=== PATIENT | female | born 1985 | race Caucasian/White ===

== ENCOUNTER 2016-05-25 10:08 | Inpatient (IN) | payer MEDICAID, OTHER ==
[~2016-05-25 10:08] MED LIST: POTA-243 PO; PRENCAP6 PO
[2016-05-25] MEDS ORDERED: NIFEdipine 10 MG CAP ONE ×4 (10:48→22:17)
[2016-05-25] MEDS ORDERED: MAGNESIUM SULFATE 4 GM PREMIX 100 ML ONE ×2 (10:56→11:12)
[2016-05-25] MEDS ORDERED: MAGNESIUM SULFATE 40 GM PREMIX 1,000 ML ONE (10:57)
[2016-05-25] MEDS ORDERED: MAGNESIUM SULFATE 1 GM/2 ML VIAL IM ONE (11:00)
[2016-05-25] MEDS ORDERED: LIDOCAINE HCL 1% 50 ML VIAL ONE (11:01)
[2016-05-25] MEDS ORDERED: SODIUM CHLORID 0.9% 500 ML INJ 500 ML IV PRN (11:15)
[2016-05-25] MEDS ORDERED: LACTATED RINGER'S 1000 ML INJ 1,000 ML IV PRN (11:15)
[2016-05-25] MEDS ORDERED: OXYTOCIN 30 UNITS-500ML PREMIX 500 ML IV ONE (11:15)
[2016-05-25] MEDS ORDERED: CITRIC ACID-SODIUM CITRATE LIQ 30 ML UDC PO SCH (11:15)
[2016-05-25] MEDS ORDERED: MINERAL OIL 10 ML VIAL TOPICAL PRN (11:15)
[2016-05-25] MEDS ORDERED: LIDOCAINE HCL 1% 50 ML VIAL INFIL PRN (11:15)
[2016-05-25] MEDS ORDERED: LIDOCAINE HCL 1% 50 ML VIAL I-DERMAL PRN (11:15)
[2016-05-25] MEDS ORDERED: ONDANSETRON HCL 4 MG/2 ML VIAL IV PRN (11:15)
[2016-05-25] MEDS ORDERED: SODIUM CHLOR 0.9% 1000 ML INJ 1,000 ML IV PRN (11:35)
[2016-05-25 11:50] LABS: AUTOMATED NEUTROPHIL # 6.6 TH/MM3 (1.8-7.7); BASOPHIL # 0.1 TH/MM3 (0-0.2); BASOPHIL % 0.7 % (0.0-2.0); EOSINOPHIL % 0.4 % (0.0-4.0); HEMATOCRIT 33.1 % (35.0-46.0); LYMPH % 17.1 % (9.0-44.0); LYMPHOCYTE # 1.5 TH/MM3 (1.0-4.8); MEAN CELL VOLUME 76.4 FL (80.0-100.0); MEAN CORPUSCULAR HEMOGLOBIN 24.9 PG (27.0-34.0); MEAN CORPUSCULAR HGB CONC 32.5 % (32.0-36.0); MONO % 5.5 % (0.0-8.0); NEUT % 76.3 % (16.0-70.0); PLATELET COUNT 259 TH/MM3 (150-450); RED BLOOD COUNT 4.33 MIL/MM3 (4.00-5.30); RED CELL DISTRIBUTION WIDTH 16.1 % (11.6-17.2); WHITE BLOOD COUNT 8.6 TH/MM3 (4.0-11.0)
[2016-05-25 11:57] LABS: HEMO FLAGS AUTO DIFF
[2016-05-25] MEDS ORDERED: PENICILLIN G POTASSIUM INJ 5,000,000 UNITS in SODIUM CHLORIDE 0.9% INJ 100 ML IV ONE (12:00)
[2016-05-25 12:15] LABS: ALT (GPT) 23 U/L (10-53); ANION GAP 9 MEQ/L (5-15); AST (GOT) 28 U/L (15-37); BICARBONATE 21.8 MEQ/L (21.0-32.0); BLOOD UREA NITROGEN 8 MG/DL (7-18); CHLORIDE 108 MEQ/L (98-107); GLOMERULAR FILTRATION RATE 108 ML/MIN (>89); POTASSIUM 3.3 MEQ/L (3.5-5.1); SODIUM (NA) 139 MEQ/L (136-145); URIC ACID 4.1 MG/DL (2.6-6.0)
[2016-05-25 12:18] LABS: ALKALINE PHOSPHATASE 267 U/L (45-117); TOTAL BILIRUBIN ADULT 0.3 MG/DL (0.2-1.0)
[2016-05-25 12:32] LABS: BLOOD, URINE NEG (NEG); COMMENT (UR) CULT NOT INDICATED; CULTURE IF INDICATED CULT NOT INDICATED; GLUCOSE,URINE NEG (NEG); HYALINE CAST, URINE 1 /lpf (RARE); KETONE, URINE NEG (NEG); MUCUS URINE FEW /lpf (OCC); NITRITE,URINE NEG (NEG); SQUAMOUS EPITHELIAL CELL URINE <1 /hpf (0-5); URINE COLOR YELLOW (YELLW/STRAW)
[2016-05-25 12:37] LABS: SCAN/DIFF AUTO DIFF CONFIRMED
[2016-05-25] MEDS ORDERED: fentaNYL 2MCG-BUPIV 0.125% INJ 100 ML ONE ×2 (12:46→18:59)
[2016-05-25] MEDS ORDERED: ePHEDrine/NS 50 MG/5 ML SYR ONE (12:58)
--- NOTE | 2016-05-25 13:11 | PD ---
HPI Chief Complaint Contractions Date Seen: May 25, 2016 Travel History International Travel<30 Days: No Contact w/Intl Traveler<30Days: No History of Present Illness HPI Mrs. Cohen is a 30-year-old at 35/5 presenting to the OB ED with contractions. She states that since she woke up this morning she's had intermittent 10 out of 10 contractions. She endorses good movement, but denies any loss of fluid, bleeding, or vaginal discharge. During this she admits to IV drug use with her last use approximately 2 months ago with IV Dilaudid 8 mg 2. Per chart review patient was also positive for cocaine at previous visits. She states that she has been to rehabilitation and is currently on Methadone 70mg daily with Gabapentin 400mg and Vistaril 50mg. She also endorses a 1 pack per day smoking history, but has quit approximately 5 months ago with intermittent single cigarettes since then. she was seen by Dr. Gilbert, however has not been seen by provider in months. PMHx significant for hepatitis C related to her IVD. 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 Home Meds Active Scripts Potassium Chloride (K-Dur)10 Meq Tabcr30 Meq PO BID #30 TABCR Ref 0 Prov:Mona Hightower MD 03/07/16 Reported Medications Mv & Min W/Fe Fumarat ( 1) Cap1 Cap PO 03/01/16 Narrative Medication vitamin daily Gabapentin 400 mg every 8 hours Ativan 1 mg every 6 hours when necessary Clonidine 0.1 mg when necessary Vistaril 50 mg daily Methadone 70 mg daily Review of Systems General / Constitutional: No: Fever Eyes: No: Blurred Vision HENT: No: Headaches Cardiovascular: No: Chest Pain or Discomfort, Palpitations Respiratory: No: Cough, Short of Breath Gastrointestinal: Diarrhea, No: Nausea, Vomiting Genitourinary: No: Dysuria, Discharge, Vaginal Bleeding Musculoskeletal: Edema Skin: No Rash Neurologic: No: Weakness Psychiatric: Substance Abuse Endocrine: No: Polydipsia Hematologic/Lymphatic: No Lymph Node Enlargement Physical Exam Narrative GENERAL: Well-nourished, well-developed patient. SKIN: Warm and dry. HEAD: Normocephalic and atraumatic. EYES: No scleral icterus. No injection or drainage. ENT: No nasal drainage noted. Mucous membranes pink. Airway patent. NECK: Supple, trachea midline. No JVD. CARDIOVASCULAR: Regular rate and rhythm without murmurs, gallops, or rubs. RESPIRATORY: Breath sounds equal bilaterally. No accessory muscle use. ABDOMEN/GI: Abdomen soft, non-tender, bowel sounds present, no rebound, no guarding Gravid to 35 weeks size GENITOURINARY: External Genitalia: intact and normal in appearance Cervix: Midposition Dilatation: And centimeters Effacement: 80% Station: 0 Presentation: Cephalic Membranes: Bulging FHT's: Category: 1 Baseline: 130 Reactive: Positive Variability: Moderate Decels: None EXTREMITIES: No cyanosis. Mild pitting edema on BL. BACK: Nontender without obvious deformity. No CVA tenderness. NEUROLOGICAL: Awake and alert. Motor and sensory grossly within normal limits. Five out of 5 muscle strength in all muscle groups. Normal speech. Data Data Vital Signs Reviewed: Yes Orders Ob (2e) Additional Admit Info (05/25/16 10:47) Nifedipine (Procardia) (05/25/16 10:48) Magnesium Sulfate 4 Gm Premix (Magnesium (05/25/16 10:56) Equip, Iv Pump Triple Use Of (05/25/16 10:56) Magnesium Sulfate 40 Gm Premix (Magnesiu (05/25/16 10:57) Magnesium Sulfate Inj (Magnesium Sulfate (05/25/16 11:00) Lidocaine 1% Inj (50 Ml) (Xylocaine 1% I (05/25/16 11:01) Magnesium Sulfate 4 Gm Premix (Magnesium (05/25/16 11:12) Admit To Inpatient (05/25/16 ) Code Status (05/25/16 11:15) Vital Signs (Adult) .Per protocol (05/25/16 11:15) ^ Heart (05/25/16 11:15) ^ Amnioinfusion (05/25/16 11:15) Urinary Catheter Management .ONCE (05/25/16 11:15) Diet Liquid (05/25/16 Lunch) Lactated Ringer's 1000 Ml Inj (Lr 1000 M (05/25/16 11:15) Lactated Ringer's 1000 Ml Inj (Lr 1000 M (05/25/16 11:15) Sodium Chlorid 0.9% 500 Ml Inj (Ns 500 M (05/25/16 11:15) Sodium Chlor 0.9% 1000 Ml Inj (Ns 1000 M (05/25/16 11:35) Lidocaine 1% Inj (50 Ml) (Xylocaine 1% I (05/25/16 11:15) Citric Acid-Sodium Citrate Liq (Bicitra (05/25/16 11:15) Ondansetron Inj (Zofran Inj) (05/25/16 11:15) Fentanyl Inj (Fentanyl Inj) (05/25/16 11:15) Fentanyl Inj (Fentanyl Inj) (05/25/16 11:15) Penicillin G Potassium Inj (Pfizerpen-G (05/25/16 12:00) Penicillin G Potassium Inj (Pfizerpen-G (05/25/16 16:00) Complete Blood Count With Diff (05/25/16 11:15) Hold Clot (05/25/16 11:15) Abo/Rh Blood Type (05/25/16 11:15) Urinalysis - C+S If Indicated (05/25/16 11:15) Type And Screen (05/25/16 11:15) Resp Oxygen Non Rebreathe Mask (05/25/16 ) ^ Epidural / Intrathecal Infus (05/25/16 11:15) Oxytocin 30 Units-500ml Premix (Pitocin (05/25/16 11:15) Lidocaine 1% Inj (50 Ml) (Xylocaine 1% I (05/25/16 11:15) Light Mineral Oil (Muri-Lube Oil) (05/25/16 11:15) Inpatient Certification (05/25/16 ) Specimen To Be Collected PRN (05/25/16 11:15) Uric Acid (05/25/16 11:42) Comprehensive Metabolic Panel (05/25/16 11:42) [facility] Medical Record Reviewed: Yes Plan Mrs. Cohen is a 30-year-old at 35/5 presenting to the OB ED with contractions 1.IUP at 35 weeks Continue routine antepartum care Category 1 tracing, reassuring 2. Labor -Cervical Check: 5cm, 90%, 0 station -Patient hill every 3-4 minutes -Plant to admit for active labor, orders placed -CBC, CMP, UA, and UDS pending -GBS unknown, will treat with Pen G 3. Hypertensive Emergency in -BP: 163/101 with repeat of 170/99 -Per Protocol Procardia 10mg given PO -IV Magnesium loading dose given with 2g/hr -Continue to monitor 4. Hepatitis C s/p IVD -UDS pending -CMP pending SDW: Dr. Fadi Landry,Brown Pagan MD R1 May 25, 2016 13:11
--- NOTE | 2016-05-25 14:12 | HHI.HP ---
History & Physical H&P HPI Chief Complaint Contractions Date Seen: May 25, 2016 Travel History International Travel<30 Days: No Contact w/Intl Traveler<30Days: No History of Present Illness HPI Mrs. Cohen is a 30-year-old at 35/5 presenting to the OB ED with contractions. She states that since she woke up this morning she's had intermittent 10 out of 10 contractions. She endorses good movement, but denies any loss of fluid, bleeding, or vaginal discharge. During this she admits to IV drug use with her last use approximately 2 months ago with IV Dilaudid 8 mg 2. Per chart review patient was also positive for cocaine at previous visits. She states that she has been to rehabilitation and is currently on Methadone 70mg daily with Gabapentin 400mg and Vistaril 50mg. She also endorses a 1 pack per day smoking history, but has quit approximately 5 months ago with intermittent single cigarettes since then. she was seen by Dr. Gilbert, however has not been seen by provider in months. PMHx significant for hepatitis C related to her IVD. 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 Home Meds Active Scripts Potassium Chloride (K-Dur)10 Meq Tabcr30 Meq PO BID #30 TABCR Ref 0 Prov:Mona Hightower MD 03/07/16 Reported Medications Mv & Min W/Fe Fumarat ( 1) Cap1 Cap PO 03/01/16 Narrative Medication vitamin daily Gabapentin 400 mg every 8 hours Ativan 1 mg every 6 hours when necessary Clonidine 0.1 mg when necessary Vistaril 50 mg daily Methadone 70 mg daily ROS Review of Systems General / Constitutional: No: Fever Eyes: No: Blurred Vision HENT: No: Headaches Cardiovascular: No: Chest Pain or Discomfort, Palpitations Respiratory: No: Cough, Short of Breath Gastrointestinal: Diarrhea, No: Nausea, Vomiting Genitourinary: No: Dysuria, Discharge, Vaginal Bleeding Musculoskeletal: Edema Skin: No Rash Neurologic: No: Weakness Psychiatric: Substance Abuse Endocrine: No: Polydipsia Hematologic/Lymphatic: No Lymph Node Enlargement Physical Exam Physical Exam Narrative GENERAL: Well-nourished, well-developed patient. SKIN: Warm and dry. HEAD: Normocephalic and atraumatic. EYES: No scleral icterus. No injection or drainage. ENT: No nasal drainage noted. Mucous membranes pink. Airway patent. NECK: Supple, trachea midline. No JVD. CARDIOVASCULAR: Regular rate and rhythm without murmurs, gallops, or rubs. RESPIRATORY: Breath sounds equal bilaterally. No accessory muscle use. ABDOMEN/GI: Abdomen soft, non-tender, bowel sounds present, no rebound, no guarding Gravid to 35 weeks size GENITOURINARY: External Genitalia: intact and normal in appearance Cervix: Midposition Dilatation: And centimeters Effacement: 80% Station: 0 Presentation: Cephalic Membranes: Bulging FHT's: Category: 1 Baseline: 130 Reactive: Positive Variability: Moderate Decels: None EXTREMITIES: No cyanosis. Mild pitting edema on BL. BACK: Nontender without obvious deformity. No CVA tenderness. NEUROLOGICAL: Awake and alert. Motor and sensory grossly within normal limits. Five out of 5 muscle strength in all muscle groups. Normal speech. Data Data Data Vital Signs Reviewed: Yes Orders Ob (2e) Additional Admit Info (05/25/16 10:47) Nifedipine (Procardia) (05/25/16 10:48) Magnesium Sulfate 4 Gm Premix (Magnesium (05/25/16 10:56) Equip, Iv Pump Triple Use Of (05/25/16 10:56) Magnesium Sulfate 40 Gm Premix (Magnesiu (05/25/16 10:57) Magnesium Sulfate Inj (Magnesium Sulfate (05/25/16 11:00) Lidocaine 1% Inj (50 Ml) (Xylocaine 1% I (05/25/16 11:01) Magnesium Sulfate 4 Gm Premix (Magnesium (05/25/16 11:12) Admit To Inpatient (05/25/16 ) Code Status (05/25/16 11:15) Vital Signs (Adult) .Per protocol (05/25/16 11:15) ^ Heart (05/25/16 11:15) ^ Amnioinfusion (05/25/16 11:15) Urinary Catheter Management .ONCE (05/25/16 11:15) Diet Liquid (05/25/16 Lunch) Lactated Ringer's 1000 Ml Inj (Lr 1000 M (05/25/16 11:15) Lactated Ringer's 1000 Ml Inj (Lr 1000 M (05/25/16 11:15) Sodium Chlorid 0.9% 500 Ml Inj (Ns 500 M (05/25/16 11:15) Sodium Chlor 0.9% 1000 Ml Inj (Ns 1000 M (05/25/16 11:35) Lidocaine 1% Inj (50 Ml) (Xylocaine 1% I (05/25/16 11:15) Citric Acid-Sodium Citrate Liq (Bicitra (05/25/16 11:15) Ondansetron Inj (Zofran Inj) (05/25/16 11:15) Fentanyl Inj (Fentanyl Inj) (05/25/16 11:15) Fentanyl Inj (Fentanyl Inj) (05/25/16 11:15) Penicillin G Potassium Inj (Pfizerpen-G (05/25/16 12:00) Penicillin G Potassium Inj (Pfizerpen-G (05/25/16 16:00) Complete Blood Count With Diff (05/25/16 11:15) Hold Clot (05/25/16 11:15) Abo/Rh Blood Type (05/25/16 11:15) Urinalysis - C+S If Indicated (05/25/16 11:15) Type And Screen (05/25/16 11:15) Resp Oxygen Non Rebreathe Mask (05/25/16 ) ^ Epidural / Intrathecal Infus (05/25/16 11:15) Oxytocin 30 Units-500ml Premix (Pitocin (05/25/16 11:15) Lidocaine 1% Inj (50 Ml) (Xylocaine 1% I (05/25/16 11:15) Light Mineral Oil (Muri-Lube Oil) (05/25/16 11:15) Inpatient Certification (05/25/16 ) Specimen To Be Collected PRN (05/25/16 11:15) Uric Acid (05/25/16 11:42) Comprehensive Metabolic Panel (05/25/16 11:42) MDM MDM Medical Record Reviewed: Yes Plan Mrs. Cohen is a 30-year-old at 35/5 presenting to the OB ED with contractions 1.IUP at 35 weeks Continue routine antepartum care Category 1 tracing, reassuring 2. Labor -Cervical Check: 5cm, 90%, 0 station -Patient hill every 3-4 minutes -Plant to admit for active labor, orders placed -CBC, CMP, UA, and UDS pending -GBS unknown, will treat with Pen G 3. Hypertensive Emergency in -BP: 163/101 with repeat of 170/99 -Per Protocol Procardia 10mg given PO -IV Magnesium loading dose given with 2g/hr -Continue to monitor 4. Hepatitis C s/p IVD -UDS pending -CMP pending SDW: Brown Gonzales MD R1 May 25, 2016 14:11
[2016-05-25] MEDS ORDERED: POTASSIUM CHLORIDE 10 MEQ CONTROLLED RELEASE TAB PO ONE (15:00)
[2016-05-25] MEDS ORDERED: MEASLES, MUMPS, RUBELLA VACCINE 0.5 ML VIAL SQ ONE (16:00)
[2016-05-25] MEDS ORDERED: DIPHTH/TETANUS/ACEL PERTUSSIS (BOOSTER) 0.5 ML VIAL/PFS IM ONE (16:00)
[2016-05-25] MEDS: LACTATED RINGER'S 1000 ML INJ 1,000 ML IV SCH (19:15)
[2016-05-25] MEDS: PENICILLIN G POTASSIUM INJ 2,500,000 UNITS in SODIUM CHLORIDE 0.9% INJ 100 ML IV SCH (20:00)
--- NOTE | 2016-05-25 20:11 | PD.OB.DELI ---
Delivery Date: May 25, 2016 Anesthesia: Epidural Episiotomy: None Vaginal Delivery: Normal Presentation: Occiput anterior Nuchal Cord: None Infant: Female One Minute : 5 Ten Minute : 8 Weight: 2660 Care: Suctioned, Blow-by O2 delivered, Transferred to nursery, Transferred to NICU, Other (be transferred to the NICU due to inability to hold oxygen saturation up) Placenta: Spontaneous delivery, Intact, 3 vessel cord Laceration: Vaginal laceration, 2 deg Repair: Chromic running Additional Information This 30-year-old G3 to P now P1 at 35 weeks who presented in labor also with elevated blood pressure started on magnesium sulfate for preeclampsia she progressed in labor She delivered over an intact perineum a viable female weight 20/6/60 grams with Apgars of 5 at 1 minute and 8 at 5 minutes Placenta delivered spontaneously intact Sustained a second-degree vaginal laceration which was repaired with 2-0 chromic suture under local lidocaine infiltration Uterus firm no active bleeding Is submitted blood loss less than 300 cc Magnesium will be continued for the next 24 hours catheter replaced Diana Ashley MD May 25, 2016 20:11
[2016-05-25] MEDS ORDERED: BENZOCAINE 20% TOPICAL SPRAY 60 ML CAN TOPICAL PRN (20:15)
[2016-05-25] MEDS ORDERED: WITCH HAZEL 50%/GLYCERIN 12.5% 40 PAD JAR TOPICAL PRN (20:15)
[2016-05-25] MEDS ORDERED: ALUMINUM/MAGNESIUM/SIMETH 30 ML CUP PO PRN (20:15)
[2016-05-25] MEDS ORDERED: DOCUSATE SODIUM 50 MG/SENNA 8.6 MG TAB PO PRN (20:15)
[2016-05-25] MEDS ORDERED: ACETAMINOPHEN 325 MG TAB PO PRN (20:15)
[2016-05-25] MEDS ORDERED: ONDANSETRON ODT 4 MG TAB PO PRN (20:15)
[2016-05-25] MEDS ORDERED: SODIUM CHLORIDE 0.9% FLUSH 5 ML FLUSH IV PRN (20:15)
[2016-05-25] MEDS: SODIUM CHLORIDE 0.9% FLUSH 5 ML FLUSH IV SCH (21:00)
[2016-05-25] MEDS ORDERED: ZOLPIDEM TARTRATE 5 MG TAB PO PRN (21:00)
[2016-05-25] MEDS ORDERED: OXYTOCIN 30 UNITS-500ML PREMIX 500 ML ONE (21:03)
[2016-05-25] MEDS ORDERED: MISOPROSTOL 200 MCG TAB ONE (21:03)
--- NOTE | 2016-05-25 21:29 | HHI.PR ---
Subjective Remarks Called by the nurses patient passed a large clot Upon evaluation the uterus is firm Clots removed from the vagina Blood pressures mildly elevated due to pain She has been continued on the magnesium sulfate Elevated blood pressures treated with Procardia Cytotec 400 g placed in the rectum No active bleeding will monitor closely Repeat CBC Objective Result Diagram: 05/25/16 1114 05/25/16 1109 Diana Ashley MD May 25, 2016 21:29
[2016-05-25] MEDS ORDERED: MISOPROSTOL 200 MCG TAB PO ONE (21:30)
[2016-05-25] MEDS ORDERED: MIDAZOLAM HCL 5 MG/5 ML VIAL ONE (22:24)
[2016-05-25 23:08] LABS: AMPHETAMINE, URINE NEG (NEG); BARBITURATES, URINE NEG (NEG)
[2016-05-25 23:13] LABS: COCAINE, URINE POS (NEG)
--- NOTE | 2016-05-25 23:23 | PD.OP ---
Operative Report Date of Surgery: May 25, 2016 Preoperative Diagnosis: Status post vaginal delivery hemorrhage Postoperative Diagnosis: Procedure: Examination under anesthesia suction D&C Anesthesia: Epidural Surgeon: Diana Aponte Field Attendant(s): OR staff Resident Surgeon: None Operation and Findings: The patient was taken to the operating room where she was placed in the supine position the epidural anesthesia had been dosed and the patient was not She was placed in the lithotomy position and a Pak catheter was already present as the patient is on magnesium sulfate was continued urinary output monitoring The perineum was prepped and draped in the usual sterile fashion examination revealed the uterus to be just above the suprapubic area firm Large clot inside the vagina removed The second degree laceration was intact The circumference of the cervix was evaluated there were no cervical lacerations The lower uterine segment had not contracted well Patient had what appeared to be ectropion and a small fibroid palpated at the lower uterine segment A suction D&C was done with a 12 mm rigid firm cannula Small amount of tissue and clots removed from the cavity Postprocedure no active bleeding Uterus was firm Blood pressure 140/80 Urine output clear and adequate Accelerations transferred to labor and delivery for postop and continued recovery Diana Ashley MD May 25, 2016 23:23
[2016-05-25 23:50] LABS: HEMATOCRIT 31.2 % (35.0-46.0); MEAN CORPUSCULAR HEMOGLOBIN 25.3 PG (27.0-34.0); MEAN CORPUSCULAR HGB CONC 33.2 % (32.0-36.0); PLATELET COUNT 311 TH/MM3 (150-450); RED CELL DISTRIBUTION WIDTH 16.3 % (11.6-17.2); REVIEW FLAG FINAL; WHITE BLOOD COUNT 19.7 TH/MM3 (4.0-11.0)
[2016-05-26] VITALS (9 sets, daily range): BP systolic 153–172; BP diastolic 68–103; PULSE 79–87; RESP 16–18; TEMP 97.6–98.2
[2016-05-26] MEDS: LACTATED RINGER'S 1000 ML INJ 1,000 ML IV SCH ×3 (03:15→13:49)
[2016-05-26] MEDS: PENICILLIN G POTASSIUM INJ 2,500,000 UNITS in SODIUM CHLORIDE 0.9% INJ 100 ML IV SCH ×5 (04:00→12:43)
[2016-05-26] MEDS ORDERED: MAGNESIUM SULFATE 40 GM PREMIX 1,000 ML ONE (07:53)
[2016-05-26] MEDS: SODIUM CHLORIDE 0.9% FLUSH 5 ML FLUSH IV SCH (09:00)
[2016-05-26] MEDS: METHADONE HCL 10 MG/10 ML ORAL SOLUTION PO SCH (09:35)
--- NOTE | 2016-05-26 09:35 | HHI.OB ---
Subjective Post Day: 1 Remarks Patient is a 30-year-old , who is day #1, after having a spontaneous vaginal delivery at 35/5 weeks gestation. She was hill on presentation and had elevated blood pressures to 163/101. She was started on magnesium for preeclampsia and she progressed into active labor. Her urine drug screen was positive for cocaine, and she is on methadone 70 mg daily. She delivered via a normal spontaneous vaginal delivery, and sustained a second- degree vaginal laceration. EBL of 300 cc, however she passed a large clot at approximately 2100 hrs. on 05/25/2016, and was given Cytotec 400 g rectally. Her uterus was firm at that time. Today, she says that she has diffuse achy pain throughout her body. She is requesting her methadone which she usually gets at this time every morning. We have called the [facility] and confirmed her dose of 70 mg liquid methadone daily. She denies any headaches, changes in vision, or difficulty breathing. She will be on magnesium until 1929. Her blood pressures have normalized. A repeat CBC was put in for this morning. Her baseline is at 10.4 g/dL Objective Vitals/I&O Vital Signs Date Time Temp Pulse Resp B/P Pulse Ox O2 Delivery O2 Flow Rate FiO2 05/25/16 18:59 18 Objective Remarks GENERAL: Well-nourished, well-developed patient. CARDIOVASCULAR: Regular rate and rhythm without murmurs, gallops, or rubs. RESPIRATORY: Breath sounds equal bilaterally. No accessory muscle use. ABDOMEN/GI: Abdomen soft, non-tender. Fundus: Firm, non-tender at umbilicus. GENITOURINARY: Light to moderate bleeding. EXTREMITIES: No cyanosis or edema, non-tender, without signs of DVT. Medications and IVs Current Medications Medications (Trade) Dose Ordered Sig/Holly Route Start Time Stop Time Status Last Admin Lactated Ringer's 1,000 ml @ 125 mls/hr Q8H IV 05/25/16 11:15 05/26/16 03:15 Lactated Ringer's 1,000 ml @ 3,000 mls/hr Q20M PRN IV 05/25/16 11:15 Sodium Chloride 500 ml @ 1,000 mls/hr ONCE PRN IV 05/25/16 11:15 05/26/16 11:14 (NS 1000 ml Inj) 1,000 ml @ 100 mls/hr Q10H PRN IV 05/25/16 11:35 (Zofran Inj) 4 mg Q6H PRN IV 05/25/16 11:15 05/25/16 16:54 (fentaNYL INJ) 50 mcg Q1H PRN IV PUSH 05/25/16 11:15 Fentanyl Citrate 100 mcg 100 mcg Q1H PRN IV PUSH 05/25/16 11:15 05/25/16 21:11 (Pfizerpen-G Inj/ NS Inj) 100 ml @ 200 mls/hr Q4H IV 05/25/16 16:00 05/26/16 08:01 (Muri-Lube Oil) 10 ml UNSCH PRN TOPICAL 05/25/16 11:15 (NS Flush) 2 ml BID IV 05/25/16 21:00 (NS Flush) 2 ml UNSCH PRN IV 05/25/16 20:15 (Tylenol) 650 mg Q4H PRN PO 05/25/16 20:15 (Motrin) 600 mg Q6H PRN PO 05/25/16 20:15 (Americaine 20% Top Spr) 1 spray Q4H PRN TOPICAL 05/25/16 20:15 (Tucks Pads) 1 applic QID PRN TOPICAL 05/25/16 20:15 (Britt-Colace) 2 tab Q12H PRN PO 05/25/16 20:15 (Ambien) 5 mg HS PRN PO 05/25/16 21:00 (Mag-Al Plus Susp Liq) 15 ml Q8H PRN PO 05/25/16 20:15 (Zofran Odt) 4 mg Q6H PRN PO 05/25/16 20:15 (Methadone Liq) 70 mg DAILY PO 05/26/16 09:00 Assessment/Plan Problem List: (1) Elevated blood pressure (2) Cocaine abuse (3) (spontaneous vaginal delivery) (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 She is currently asymptomatic. Continue magnesium until 1930, today. Reflexes were 2+ throughout. Consider adding labetalol 300 mg twice a day if continuing to have elevated pressures greater than 160. Elevated blood pressures may be secondary to withdrawal. (2) Cocaine abuse Status: Acute Assessment & Plan: Positive UDS for cocaine. [facility] will be contacted. (3) Dilaudid use disorder, mild, abuse Status: Acute Assessment & Plan: Currently on methadone 70 mg daily. We'll continue this during her hospitalization. (4) (spontaneous vaginal delivery) Status: Acute Assessment & Plan: Patient passed a large clot shortly after delivery, was given Cytotec 400 g rectally. Repeat CBC for this morning is pending. (5) Leukocytosis Status: Acute Assessment & Plan: Increase in her WBC from 8.6 to 19.7. Patient remains afebrile. Urinalysis showed no signs of infection. Possible retained products after passing large blood clot. Placenta was intact after delivery. We'll continue to monitor for signs of endometritis/infection. Seen and discussed with Dr. Landry Discussed with Renato Jenkins MD R2 May 26, 2016 09:35 Consider adding labetalol 300 mg twice a day if continuing to have elevated pressures greater than 160. Elevated blood pressures may be secondary to withdrawal. (2) Cocaine abuse Status: Acute Assessment & Plan: Positive UDS for cocaine. [facility] will be contacted. (3) Dilaudid use disorder, mild, abuse Status: Acute Assessment & Plan: Currently on methadone 70 mg daily. We'll continue this during her hospitalization. (4) (spontaneous vaginal delivery) Status: Acute Assessment & Plan: Patient passed a large clot shortly after delivery, was given Cytotec 400 g rectally. Repeat CBC at bedtime for this morning is pending. (5) Leukocytosis Status: Acute Assessment & Plan: Increase in her WBC from 8.6 to 19.7. Patient remains afebrile. Urinalysis showed no signs of infection. Possible retained products after passing large blood clot. Placenta was intact after delivery. We'll continue to monitor for signs of endometritis/infection. Seen and discussed with Dr. Landry Discussed with Dr. Ashley Objective Vitals/I&O Vital Signs Date Time Temp Pulse Resp B/P Pulse Ox O2 Delivery O2 Flow Rate FiO2 05/25/16 18:59 18 Objective Remarks GENERAL: Well-nourished, well-developed patient. CARDIOVASCULAR: Regular rate and rhythm without murmurs, gallops, or rubs. RESPIRATORY: Breath sounds equal bilaterally. No accessory muscle use. ABDOMEN/GI: Abdomen soft, non-tender. Fundus: Firm, non-tender at umbilicus. GENITOURINARY: Light to moderate bleeding. EXTREMITIES: No cyanosis or edema, non-tender, without signs of DVT. Medications and IVs Current Medications Medications (Trade) Dose Ordered Sig/Holly Route Start Time Stop Time Status Last Admin Lactated Ringer's 1,000 ml @ 125 mls/hr Q8H IV 05/25/16 11:15 05/26/16 03:15 Lactated Ringer's 1,000 ml @ 3,000 mls/hr Q20M PRN IV 05/25/16 11:15 Sodium Chloride 500 ml @ 1,000 mls/hr ONCE PRN IV 05/25/16 11:15 05/26/16 11:14 (NS 1000 ml Inj) 1,000 ml @ 100 mls/hr Q10H PRN IV 05/25/16 11:35 (Zofran Inj) 4 mg Q6H PRN IV 05/25/16 11:15 05/25/16 16:54 (fentaNYL INJ) 50 mcg Q1H PRN IV PUSH 05/25/16 11:15 Fentanyl Citrate 100 mcg 100 mcg Q1H PRN IV PUSH 05/25/16 11:15 05/25/16 21:11 (Pfizerpen-G Inj/ NS Inj) 100 ml @ 200 mls/hr Q4H IV 05/25/16 16:00 05/26/16 08:01 (Muri-Lube Oil) 10 ml UNSCH PRN TOPICAL 05/25/16 11:15 (NS Flush) 2 ml BID IV 05/25/16 21:00 (NS Flush) 2 ml UNSCH PRN IV 05/25/16 20:15 (Tylenol) 650 mg Q4H PRN PO 05/25/16 20:15 (Motrin) 600 mg Q6H PRN PO 05/25/16 20:15 (Americaine 20% Top Spr) 1 spray Q4H PRN TOPICAL 05/25/16 20:15 (Tucks Pads) 1 applic QID PRN TOPICAL 05/25/16 20:15 (Britt-Colace) 2 tab Q12H PRN PO 05/25/16 20:15 (Ambien) 5 mg HS PRN PO 05/25/16 21:00 (Mag-Al Plus Susp Liq) 15 ml Q8H PRN PO 05/25/16 20:15 (Zofran Odt) 4 mg Q6H PRN PO 05/25/16 20:15 (Methadone Liq) 70 mg DAILY PO 05/26/16 09:00 Renato Hoorwitz MD R2 May 26, 2016 09:35
[2016-05-26 11:09] LABS: HEMATOCRIT 27.7 % (35.0-46.0); MEAN CELL VOLUME 75.2 FL (80.0-100.0); MEAN CORPUSCULAR HEMOGLOBIN 24.8 PG (27.0-34.0); PLATELET COUNT 306 TH/MM3 (150-450); RED BLOOD COUNT 3.68 MIL/MM3 (4.00-5.30); RED CELL DISTRIBUTION WIDTH 16.2 % (11.6-17.2); WHITE BLOOD COUNT 13.9 TH/MM3 (4.0-11.0)
[2016-05-26 11:14] LABS: REVIEW FLAG FINAL
[2016-05-26] MEDS: IBUPROFEN 600 MG TAB PO PRN (12:34)
[2016-05-27 01:30] VITALS: BP 151/88; PULSE 59; RESP 18; TEMP 98.2
[2016-05-27] MEDS: IBUPROFEN 600 MG TAB PO PRN (01:42)
[2016-05-27 05:35] VITALS: BP 141/83; PULSE 56; RESP 16; TEMP 98.1
[2016-05-27] MEDS: METHADONE HCL 10 MG/10 ML ORAL SOLUTION PO SCH (08:19)
--- NOTE | 2016-05-27 09:04 | HHI.OB ---
Subjective Post Day: 2 Remarks doing well , bleeding decreased , faustino diet uterus at umb NT Plan to D/C today Objective Vitals/I&O Vital Signs Date Time Temp Pulse Resp B/P Pulse Ox O2 Delivery O2 Flow Rate FiO2 05/27/16 05:35 98.1 56 16 141/83 05/27/16 02:42 18 05/27/16 01:30 98.2 59 18 151/88 05/26/16 21:30 98.2 80 18 156/97 05/26/16 20:00 97.6 05/26/16 19:58 18 05/26/16 19:35 85 160/94 05/26/16 19:01 87 172/68 05/26/16 18:00 80 171/103 05/26/16 14:55 16 05/26/16 14:01 79 157/88 05/26/16 13:01 79 153/84 Objective Remarks GENERAL: Well-nourished, well-developed patient. CARDIOVASCULAR: Regular rate and rhythm without murmurs, gallops, or rubs. RESPIRATORY: Breath sounds equal bilaterally. No accessory muscle use. ABDOMEN/GI: Abdomen soft, non-tender. Fundus: Firm, non-tender at umbilicus. GENITOURINARY: Light to moderate bleeding. EXTREMITIES: No cyanosis or edema, non-tender, without signs of DVT. Medications and IVs Current Medications Medications (Trade) Dose Ordered Sig/Holly Route Start Time Stop Time Status Last Admin Lactated Ringer's 1,000 ml @ 125 mls/hr Q8H IV 05/25/16 11:15 05/26/16 13:49 Lactated Ringer's 1,000 ml @ 3,000 mls/hr Q20M PRN IV 05/25/16 11:15 (NS 1000 ml Inj) 1,000 ml @ 100 mls/hr Q10H PRN IV 05/25/16 11:35 (Zofran Inj) 4 mg Q6H PRN IV 05/25/16 11:15 05/25/16 16:54 (fentaNYL INJ) 50 mcg Q1H PRN IV PUSH 05/25/16 11:15 Fentanyl Citrate 100 mcg 100 mcg Q1H PRN IV PUSH 05/25/16 11:15 05/25/16 21:11 (Pfizerpen-G Inj/ NS Inj) 100 ml @ 200 mls/hr Q4H IV 05/25/16 16:00 05/26/16 12:43 (Muri-Lube Oil) 10 ml UNSCH PRN TOPICAL 05/25/16 11:15 (NS Flush) 2 ml BID IV 05/25/16 21:00 (NS Flush) 2 ml UNSCH PRN IV 05/25/16 20:15 (Tylenol) 650 mg Q4H PRN PO 05/25/16 20:15 (Motrin) 600 mg Q6H PRN PO 05/25/16 20:15 05/27/16 01:42 (Americaine 20% Top Spr) 1 spray Q4H PRN TOPICAL 05/25/16 20:15 05/27/16 01:30 (Tucks Pads) 1 applic QID PRN TOPICAL 05/25/16 20:15 05/27/16 01:30 (Britt-Colace) 2 tab Q12H PRN PO 05/25/16 20:15 (Ambien) 5 mg HS PRN PO 05/25/16 21:00 (Mag-Al Plus Susp Liq) 15 ml Q8H PRN PO 05/25/16 20:15 (Zofran Odt) 4 mg Q6H PRN PO 05/25/16 20:15 (Methadone Liq) 70 mg DAILY PO 05/26/16 09:00 05/27/16 08:19 (Flu (Quadrivalent) Vaccine Inj) 0.5 ml ONCE ONCE IM 05/28/16 10:00 05/28/16 10:01 Assessment/Plan Problem List: (1) Elevated blood pressure (2) Cocaine abuse (3) (spontaneous vaginal delivery) (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 She is currently asymptomatic. Continue magnesium until 1930, today. Reflexes were 2+ throughout. Consider adding labetalol 300 mg twice a day if continuing to have elevated pressures greater than 160. Elevated blood pressures may be secondary to withdrawal. (2) Cocaine abuse Status: Acute Assessment & Plan: Positive UDS for cocaine. DCF will be contacted. (3) Dilaudid use disorder, mild, abuse Status: Acute Assessment & Plan: Currently on methadone 70 mg daily. We'll continue this during her hospitalization. (4) (spontaneous vaginal delivery) Status: Acute Assessment & Plan: Patient passed a large clot shortly after delivery, was given Cytotec 400 g rectally. Repeat CBC for this morning is pending. (5) Leukocytosis Status: Acute Assessment & Plan: Increase in her WBC from 8.6 to 19.7. Patient remains afebrile. Urinalysis showed no signs of infection. Possible retained products after passing large blood clot. Placenta was intact after delivery. We'll continue to monitor for signs of endometritis/infection. Seen and discussed with Dr. Landry Discussed with Dr. Landry-Alexandr Cohn II, MD May 27, 2016 09:04
[2016-05-27] MEDS ORDERED: SENN1TAB PO (10:03)
[2016-05-27] MEDS ORDERED: IBUP-232 PO (10:03)
--- NOTE | 2016-05-27 10:04 | HHI.DCPOC ---
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 (4) Dilaudid use disorder, mild, abuse Report Symptoms to Your Doctor -Temperate above 100.5 degrees -Redness, of incision or excessive or foul smelling drainage -Unusual pain or calf pain -Increased vaginal bleeding -Painful or difficulty urinating -Feelings of extreme sadness or anxiety after 2 weeks Goals to Promote Your Health * To prevent worsening of your condition and complications * To maintain your health at the optimal level Directions to Meet Your Goals Take your medications as prescribed Follow your dietary instruction Follow activity as directed Ensure plenty of rest for recovery Drink fluids for hydration Keep your appointments as scheduled Take your immunizations and boosters as scheduled If your symptoms worsen call your PCP, if no PCP go to Urgent Care Center or Emergency Room Smoking is Dangerous to Your Health. Avoid second hand smoke Call the 24-hour crisis hotline for domestic abuse at Renato Horowitz MD R2 May 27, 2016 10:04
[2016-05-27] MEDS ORDERED: LABE100T2 PO (11:03)
[2016-05-27] MEDS ORDERED: LABETALOL HCL 100 MG TAB PO SCH (11:15)
[2016-05-27 13:17] VITALS: BP 134/70
[2016-05-28] MEDS ORDERED: INFLUENZA VIRUS VACCINE (QUADRIVALENT) 0.5 ML SYR IM ONE (10:00)
[2016-06-01 08:52] LABS: PHENCYCLIDINE URINE NEG (NEG)
[2016-06-01 08:55] LABS: BATH SALTS (MDPV) UR NEG (NEG); ECSTASY (MDMA) UR NEG (NEG); HEROIN (6-ACETYLMORPHINE) UR NEG (NEG); K2 SPICE UR NEG (NEG); OBMETHADONE UR POS (NEG)
[2016-06-01 08:56] LABS: OXYCODONE (PERCODAN) NEG (NEG)
== END 2016-05-27 15:07 | disposition home or self-care (01) | DRG 774 ==
LOC: HOBED 10:08 → H2EB 10:52 → H2EA 23:35 → H1EA 05-26 19:51
PROVIDERS: ADMIT Obstetrics & Gynecology; ATTEND Obstetrics & Gynecology
PROC: 10E0XZZ Delivery of Products of Conception, External Approach (ICD-10-PCS; principal; 2016-05-25)
PROC: 0KQM0ZZ Repair Perineum Muscle, Open Approach (ICD-10-PCS; 2016-05-25)
PROC: 3E0R3CZ (ICD-10-PCS; 2016-05-25)
PROC: 00HU33Z Insertion of Infusion Device into Spinal Canal, Percutaneous Approach (ICD-10-PCS; 2016-05-25)
PROC: 10D07Z6 Extraction of Products of Conception, Vacuum, Via Natural or Artificial Opening (ICD-10-PCS; 2016-05-25)
DX: O60.14X0 Preterm labor third trimester with preterm delivery third trimester, not applicable or unspecified (principal); O98.42 Viral hepatitis complicating childbirth; I16.1 Hypertensive emergency; O99.324 Drug use complicating childbirth; O14.94 Unspecified pre-eclampsia, complicating childbirth; O72.1 Other immediate postpartum hemorrhage; F19.939 Other psychoactive substance use, unspecified with withdrawal, unspecified; Z37.0 Single live birth; O99.334 Smoking (tobacco) complicating childbirth; Z3A.35 35 weeks gestation of pregnancy; B19.20 Unspecified viral hepatitis C without hepatic coma; F11.10 Opioid abuse, uncomplicated; F17.210 Nicotine dependence, cigarettes, uncomplicated; F14.10 Cocaine abuse, uncomplicated; O70.1 Second degree perineal laceration during delivery; Z23 Encounter for immunization
CPT/HCPCS: 80053; 80307; 80353; 81001; 84550; 85025; 85027; 86850; 86900; 86901; 88307; 90686; 90715; 99285; G0480; G0481; J2250; J2405; J2540; J2590; J3010; J3475; J7120; Q2038

== ENCOUNTER 2016-09-11 19:59 | Emergency (ER) | payer MEDICAID ==
[~2016-09-11 19:59] MED LIST changes: +IBUP-232 PO; +LABE100T2 PO; +SENN1TAB PO
[2016-09-11 20:01] VITALS: BP 125/78; PULSE 76; RESP 18; TEMP 98.5; O2SAT 100
[2016-09-11] MEDS ORDERED: BACT800T5 PO (21:00)
--- NOTE | 2016-09-11 21:10 | PD ---
HPI Chief Complaint: Skin Problem Time Seen by Provider: 21:02 Travel History International Travel<30 days: No Contact w/Intl Traveler<30days: No Traveled to known affect area: No History of Present Illness HPI 31-year-old white female presents emergency department for evaluation of possible skin infections from IV drug abuse. She states that she takes methadone orally on a daily basis but also shoots cocaine. She states that she is in the process of getting in to [facility] to detox off of methadone and get into a long-term treatment facility. She states that she just lost her daughter this week to [facility] due to her substance abuse. She denies any fever chills. No discharge. She states that her injection sites are mildly red and swollen but feels that they are actually getting better. Denies . PFSH Past Medical History Narrative Medical Hepatitis C, Intravenous drug abuse Diminished Hearing: No Hepatitis: Yes (C) Tetanus Vaccination: > 5 Years ?: Not Dilation and Curettage (D&C): Yes Past Surgical History Surgical History: No Previous Surgery Social History Alcohol Use: No Tobacco Use: Yes (1ppd during , quit 5 months ago, intermittent since ) Substance Use: Yes (cocaine) Allergies-Medications (Allergen,Severity, Reaction): Coded Allergies: No Known Allergies (Unverified , 09/11/16) Per pt. Reported Meds & Prescriptions Reported Meds & Active Scripts Active Bactrim DS (Sulfamethoxazole-Trimethoprim) 800-160 Mg Tab 1 Tab PO BID Labetalol (Labetalol HCl) 100 Mg Tab 100 Mg PO BID Senna Plus 8.6-50 mg (Sennosides-Docusate Sodium) 1 Tab Tab 2 Tab PO Q12H PRN Ibuprofen 600 Mg Tab 600 Mg PO Q6H PRN K-Dur (Potassium Chloride) 10 Meq Tabcr 30 Meq PO BID Reported 1 ( Multivitamins) Cap 1 Cap PO Review of Systems Except as stated in HPI: all other systems reviewed are Neg General / Constitutional: No: Fever, Chills Eyes: No: Photophobia, Visual changes HENT: No: Sore Throat, Neck Pain Cardiovascular: No: Chest Pain or Discomfort, Tachycardia Respiratory: No: Cough, Shortness of Breath Gastrointestinal: No: Nausea, Vomiting Genitourinary: No: Frequency, Dysuria Musculoskeletal: Positive: Edema, Pain (minimal), No: Myalgias, Arthralgias, Limited ROM Skin: Positive Rash, Positive Lesions Physical Exam Narrative GENERAL: This is a well-nourished, well-developed patient, in no apparent distress. SKIN: Patient has multiple track santos on both upper and lower extremities. There are several small areas of erythema surrounding the injection sites. There is no fluctuance or pointing. These appear to be reactions from injecting and possibly mild localized wound infection. I see no evidence of cellulitis or abscess. Warm and dry. HEAD: Atraumatic. Normocephalic. EYES: PERRL, EOMI, no discharge or injection. No scleral icterus. EARS: Clear NOSE: Nasal turbinates appear normal. THROAT: Mucosa pink and moist. Airway patent. NECK: Trachea midline. supple, moves head freely. LUNGS: Clear to auscultation. CV: Regular in rhythm. No murmurs. ABDOMEN: Soft nontender. EXT: No clubbing cyanosis or edema. Data Data Last Documented VS Vital Signs Date Time Temp Pulse Resp B/P Pulse Ox O2 Delivery O2 Flow Rate FiO2 09/11/16 20:01 98.5 76 18 125/78 100 MDM Medical Decision Making Medical Screen Exam Complete: Yes Emergency Medical Condition: Yes Medical Record Reviewed: Yes Differential Diagnosis MDM: High Differential diagnoses: Abscess, folliculitis, cellulitis, lymphangitis, abrasion, contact dermatitis Narrative Course Patient's given Bactrim DS by mouth and tetanus immunization. I explained to the patient I will be happy to give her antibiotics although I do not believe that these are truly infectious. It appeared to be more inflammatory reaction from injecting. This is intravenous drug abuse Diagnosis Primary Impression: Intravenous drug abuse Additional Impression: Skin lesion due to intravenous drug abuse Patient Instructions: General Instructions Additional Instructions: Rest. Elevation. keep clean and dry. Warm compresses. Daily wound care with soap, water and Neosporin. Advil for pain.. Septra DS.. Follow-up with a primary care doctor in one week. Return to the ER for any problems. Med/Other Pt SpecificInfo: Prescription(s) given, Wound Care Scripts Sulfamethoxazole-Trimethoprim (Bactrim DS)800-160 Mg Tab1 Tab PO BID #20 TAB Prov:Misael Suazo MD 09/11/16 Disposition: DISCHARGE HOME Condition: Stable Tam Wynn Sep 11, 2016 21:10
[2016-09-11] MEDS ORDERED: SULFAMETHOXAZOLE-TRIMETHOPRIM DS 800-160 MG TAB PO ONE (21:15)
[2016-09-11] MEDS ORDERED: TETANUS/DIPHTHERIA TOXOID ADULT 0.5 ML VIAL IM ONE (21:15)
== END 2016-09-11 21:29 | disposition home or self-care (01) ==
LOC: NEPD 19:59
DX: F14.10 Cocaine abuse, uncomplicated (principal); L98.8 Other specified disorders of the skin and subcutaneous tissue; B19.20 Unspecified viral hepatitis C without hepatic coma; Z23 Encounter for immunization; Z72.0 Tobacco use
CPT/HCPCS: 90471; 90714